=== PATIENT | male | born 1975 | race Caucasian/White ===

== ENCOUNTER 2016-10-12 21:13 | Emergency (ER) | payer BC, OTHER ==
--- NOTE | 2016-10-12 21:21 | ER Document Report ---
HPI - HPI Patient complains to provider of: Possible skin infection Onset: This morning Onset/Duration: Gradual Quality of pain: Throbbing Pain Level: 2 Context: 40-year-old obese male with a history of MRSA concerned that he had cellulitis to his medial right ankle from scratching insect bites. This morning he developed redness heat and tenderness just above his medial right ankle. He has not taken his BP meds today. No fever. Associated Symptoms: None Exacerbated by: Movement Relieved by: Denies Similar symptoms previously: No Recently seen / treated by doctor: No - ROS ROS below otherwise negative: Yes Systems Reviewed and Negative: Yes All other systems reviewed and negative Past Medical History - General Information source: Patient - Social History Smoking Status: Unknown if Ever Smoked Frequency of alcohol use: None Drug Abuse: None Lives with: Family Family History: Reviewed & Not Pertinent Patient has suicidal ideation: No Patient has homicidal ideation: No - Medical History Medical History: Negative Renal/ Medical History: Denies: Hx Peritoneal Dialysis Surgical Hx: Negative Vertical Provider Document - CONSTITUTIONAL Agree With Documented VS: Yes Exam Limitations: No Limitations General Appearance: No Apparent Distress - INFECTION CONTROL TRAVEL OUTSIDE OF THE [place] IN LAST 30 DAYS: No - HEENT HEENT: Normocephalic - NECK Neck: Supple - RESPIRATORY Respiratory: Breath Sounds Normal, No Respiratory Distress O2 Sat by Pulse Oximetry: 97 - CARDIOVASCULAR Cardiovascular: Regular Rate, Regular Rhythm - MUSCULOSKELETAL/EXTREMETIES Musculoskeletal/Extremeties: MAEW, FROM, Tender - warm, red cellulitis with some lyphnagitis medial right ankle, marked with skin marker, 6 x 9 cm, No Edema - NEURO Level of Consciousness: Awake, Alert Motor/Sensory: No Motor Deficit, No Sensory Deficit Notes: 2 + right DP - DERM Integumentary: Warm, Dry Notes: multiple excoriated insect bites both ankles. Course - Vital Signs Vital signs: Temp Pulse Resp BP Pulse Ox 98.1 F 90 20 155/107 H 97 10/12/16 21:18 10/12/16 21:18 10/12/16 21:18 10/12/16 21:18 10/12/16 21:18 Discharge - Discharge Clinical Impression: cellulitis right medial ankle Condition: Good Disposition: HOME, SELF-CARE Instructions: Cellulitis ([facility]) Additional Instructions: elevate right ankle tonight take your blood pressure medication when you get home warm compress all night take the 2nd dose of clindamycin at 4 am, set your alarm return to er if spike fever, bodyaches, increased red skin, or any concerns [facility] here [facility] Please complete the patient satisfaction survey if you get one, and return it.. If you do not receive a survey, then you can go to the [facility] website, [email or web address] and place your comments about your very good care. Thank you very much. It was a pleasure being your medical provider today. Prescriptions: Clindamycin HCl [Cleocin 150 mg Capsule] 300 mg PO QID #56 capsule
[2016-10-12] MEDS ORDERED: ONDANSETRON 4 MG TAB.RAPDIS PO ONE (21:37)
[2016-10-12] MEDS ORDERED: CLINDAMYCIN HCL 150 MG CAPSULE PO ONE ×2 (21:37→21:38)
[2016-10-12 21:38] VITALS: BP 160/94
== END 2016-10-12 21:47 | disposition home or self-care (01) ==
LOC: ER 21:13
DX: L03.115 Cellulitis of right lower limb (principal); S90.561A Insect bite (nonvenomous), right ankle, initial encounter; W57.XXXA Bitten or stung by nonvenomous insect and other nonvenomous arthropods, initial encounter
CPT/HCPCS: 99283; S0119